=== PATIENT | female | born 1975 | race Hispanic/Latino ===

== ENCOUNTER → 2024-10-14 | Outpatient (CLI) | payer MEDICARE ==
[2024-10-14 15:40] LABS: BASO # 0.0 10^3/uL (0.0-0.2); BASO % 0.7 % (0.0-1.0); EOS # 0.2 10^3/uL (0.0-0.5); EOS % 4.2 % (0.0-3.0); LYMPH # 2.2 10^3/uL (1.5-5.0); LYMPH % 39.3 % (24.0-44.0); MONO # 0.7 10^3/uL (0.0-0.8); MONO % 12.7 % (2.0-8.0); NEUTROPHILS # 2.4 10^3/uL (1.5-8.5); NEUTROPHILS % 42.6 % (36.0-66.0); PLATELET COUNT, AUTOMATED 409 10^3/uL (150-450)
[2024-10-14 15:46] LABS: ERYTHROCYTE SEDIMENTATION RATE 11 mm/hr (0-20)
[2024-10-14 16:08] LABS: ALT/SGPT 338 U/L (7.0-40); AST/SGOT 136 U/L (<34); CALCIUM LEVEL 9.8 MG/DL (8.5-10.1); CARBON DIOXIDE LEVEL 30 MMOL/L (20-31); CHLORIDE LEVEL 104 MMOL/L (98-107); CREATININE FOR GFR 0.87 MG/DL (0.55-1.30); GLOMERULAR FILTRATION RATE 82.1 (>58); POTASSIUM SERUM 4.9 MMOL/L (3.5-5.1); RHEUMATOID FACTOR QUANT < 3.5 IU/ML (<14); SODIUM LEVEL 143 MMOL/L (136-145)
[2024-10-14 16:09] LABS: TOTAL 25(OH) VITAMIN D 37.6 NG/ML (20.0-100.0); VITAMIN B12 LEVEL 615 PG/ML (211-911)
[2024-10-19 18:54] LABS: VITAMIN E(ALPHA TOCOPHEROL) 23.1 mg/L (5.7-19.9); VITAMIN E(GAMMA TOCOPHEROL) 1.2 mg/L (<=4.3)
== END ==
LOC: M PLALAB 11:58
PROVIDERS: ATTEND Psychiatry & Neurology Neurology
DX: F09 Unspecified mental disorder due to known physiological condition (principal); E07.9 Disorder of thyroid, unspecified

== ENCOUNTER 2024-10-28 11:35 | Emergency (ER) | payer MEDICARE ==
[~2024-10-28] VITALS: Ht 152.4 cm; Wt 72.5 kg
[2024-10-28] MEDS: IBUPROFEN 600 MG TAB PO ONE (13:52)
[2024-10-28 14:04] VITALS: BP 125/87; TEMP 97; O2SAT 100
== END 2024-10-28 14:14 | disposition home or self-care (01) ==
LOC: M ED 11:35
DX: S67.02XA Crushing injury of left thumb, initial encounter (principal); S67.191A Crushing injury of left index finger, initial encounter; W23.2XXA Caught, crushed, jammed or pinched between a moving and stationary object, initial encounter; Y92.59 Other trade areas as the place of occurrence of the external cause; Y93.9 Activity, unspecified; Y99.9 Unspecified external cause status; F31.31 Bipolar disorder, current episode depressed, mild; Z62.810 Personal history of physical and sexual abuse in childhood; Z91.411 Personal history of adult psychological abuse